=== PATIENT | male | born 1990 | race African-American/Black ===

== ENCOUNTER 2018-10-05 10:09 | Emergency (ER) | payer MEDICAID ==
[~2018-10-05] VITALS: Ht 167.6 cm; Wt 52.0 kg
[2018-10-05 13:25] VITALS: BP 126/65
== END 2018-10-05 13:40 | disposition home or self-care (01) ==
LOC: ER 10:09
DX: Z48.00 Encounter for change or removal of nonsurgical wound dressing (principal); L02.11 Cutaneous abscess of neck
CPT/HCPCS: 99282

== ENCOUNTER 2019-04-23 11:55 | Emergency (ER) | payer MEDICAID ==
[~2019-04-23] VITALS: Ht 170.2 cm; Wt 62.0 kg
[2019-04-23] MEDS ORDERED: IBUPROFEN 600MG TABLET PO ONE (12:30)
[2019-04-23 15:10] VITALS: BP 117/71
== END 2019-04-23 15:04 | disposition home or self-care (01) ==
LOC: ER 12:05
DX: S09.8XXA Other specified injuries of head, initial encounter (principal); F12.10 Cannabis abuse, uncomplicated; Z90.49 Acquired absence of other specified parts of digestive tract; Z88.5 Allergy status to narcotic agent; V49.49XA Driver injured in collision with other motor vehicles in traffic accident, initial encounter; Y93.89 Activity, other specified; Y92.89 Other specified places as the place of occurrence of the external cause; Y99.8 Other external cause status
CPT/HCPCS: 70486; 99284